=== PATIENT | male | born 1950 | race Caucasian/White ===

== ENCOUNTER 2017-07-19 01:22 | Emergency (ER) | payer MEDICAID ==
[~2017-07-19] VITALS: Ht 167.6 cm; Wt 74.6 kg
[2017-07-19 01:25] VITALS: BP 186/113
[2017-07-19] MEDS ORDERED: ATOR40TA PO (02:24)
[2017-07-19] MEDS ORDERED: VALS320T2 PO (02:24)
[2017-07-19] MEDS ORDERED: CLOP75TA15 PO (02:24)
[2017-07-19] MEDS ORDERED: HYDR25TA4 PO (02:24)
[2017-07-19] MEDS ORDERED: ASPI-869 PO (02:24)
[2017-07-19] MEDS ORDERED: NITR0.4T48 SL (02:24)
[2017-07-19] MEDS ORDERED: AMLO5TAB7 PO (02:24)
[2017-07-19] MEDS ORDERED: CLON0.1T PO (02:24)
[2017-07-19] MEDS ORDERED: TRAMADOL HCL 50 MG TABLET PO ONE (03:00)
== END 2017-07-19 02:51 | disposition home or self-care (01) ==
LOC: ER 01:25
DX: R10.32 Left lower quadrant pain (principal); I10 Essential (primary) hypertension; I25.10 Atherosclerotic heart disease of native coronary artery without angina pectoris; E78.5 Hyperlipidemia, unspecified; Z79.82 Long term (current) use of aspirin
CPT/HCPCS: A4606; Z7610